=== PATIENT | male | born 1975 | race Caucasian/White ===

== ENCOUNTER 2021-03-09 19:32 | Emergency (ER) | payer MEDICARE ==
[2021-03-09 20:14] LABS: HEMOGLOBIN 15.8 gm/dl (14.0-17.5); RED BLOOD COUNT 4.63 M/UL (4.20-5.50); WHITE BLOOD COUNT 9.3 K/UL (4.5-11.0)
[2021-03-09 20:52] LABS: BUN/CREATININE RATIO 12 (0-10)
[2021-03-10] MEDS ORDERED: DILANTIN 100 M100 MG PO (01:15)
== END 2021-03-10 01:40 | disposition home or self-care (01) ==
LOC: ER1 19:32
PROVIDERS: Physician Assistant
DX: R53.83 Other fatigue (principal); R89.2 Abnormal level of other drugs, medicaments and biological substances in specimens from other organs, systems and tissues; Z79.899 Other long term (current) drug therapy; Z20.822 Contact with and (suspected) exposure to COVID-19
CPT/HCPCS: 0240U; 71045; 80053; 80185; 82550; 82553; 83605; 83735; 83874; 84100; 84439; 84443; 84484; 85025; 93005; 99284

== ENCOUNTER → 2022-04-18 | Outpatient (CLI) | payer MEDICARE ==
[~2022-04-18] MED LIST: DILANTIN 100 M100 MG PO
== END ==
LOC: EXRD 13:53
DX: I73.9 Peripheral vascular disease, unspecified (principal)
CPT/HCPCS: 93925